=== PATIENT | male | born 1950 | race Caucasian/White ===

== ENCOUNTER → 2019-05-21 | Outpatient (CLI) | payer OTHER ==
--- NOTE | 2019-05-22 08:35 | REP ---
RENAL ULTRASOUND: CLINICAL: Chronic stage III medical renal disease. TECHNIQUE: Real-time grayscale ultrasound examination using curved array transducer. FINDINGS: The bilateral kidneys are normal in contour, size, echogenicity and reniform shape without hydronephrosis, nephrolithiasis, cystic or renal mass lesion. Increased central sinus fat noted and consistent with given history of chronic renal disease. Right kidney measures 10.9 x 4.9 x 4.9 cm. Left kidney measures 10.7 x 4.4 x 6.1 cm. Bladder is grossly normal in appearance. IMPRESSION: Evidence consistent with chronic medical renal disease.No hydronephrosis or further obvious abnormality. Electronically Signed by José Rodarte MD 05/25/2019 07:38 P
== END ==
LOC: M RAD 11:49
PROVIDERS: ATTEND Internal Medicine
DX: N18.3 Chronic kidney disease, stage 3 (moderate) (principal)

== ENCOUNTER → 2019-11-20 | Outpatient (REF) | payer OTHER ==
[~2019-11-20] MED LIST: ADV100INH INH; AMIL5TAB4 PO; ASPI81TA86 PO; CLOB0.0526 TOP; FERR32TA PO; FISH1000 PO; FLUT1BLS2 INH; GLIP2.5T6 PO; K-TA10TA PO; LISI-538 PO; LOPR1TAB7 PO; OMEGCAP4 PO; OMEP-221 PO; PRIL20TA2 PO; PROAAER10 INH; PROBCAP14 PO; ROSU40TA4 PO; SPIR1CAP INH
[2019-11-20 20:47] LABS: FERRITIN 643 NG/ML (26-388); IRON (FE) 51 UG/DL (65-175); PERCENT SATURATION 18.9 % (19.7-50.0); TOTAL IRON BINDING CAPACITY 270 UG/DL (250-450); TOTAL PROTEIN 6.9 GM/DL (6.4-8.2)
[2019-11-20 20:55] LABS: HEPATITIS B SURFACE ANTIBODY NEGATIVE (POSITIVE); VITAMIN B12 LEVEL 274 PG/ML
[2019-11-20 20:56] LABS: FOLATE 7.5 NG/ML
[2019-11-20 21:06] LABS: HEPATITIS B SURFACE ANTIGEN NEGATIVE (NEGATIVE)
[2019-11-20 21:34] LABS: HEPATITIS B CORE ANTIBODY IGM NEGATIVE (NEGATIVE); HEPATITIS C VIRUS ABY INDEX 0.2 INDEX (<0.8)
[2019-11-20 23:13] LABS: COMPLEMENT C3 134 MG/DL (90-180); COMPLEMENT C4 24 MG/DL (10-40)
[2019-11-24 13:10] LABS: ALBUMIN 3.55 GM/DL (3.29-5.55); ALBUMIN % 51.5 % (55.8-66.1); ALPHA-1-GLOBULIN % 5.2 % (2.9-4.9); ALPHA-1-GLOBULINS 0.36 GM/DL (0.17-0.41); ALPHA-2-GLOBULINS 0.75 GM/DL (0.42-0.99); ALPHA-2-GLOBULINS % 10.9 % (7.1-11.8); BETA-1-GLOBULINS 0.48 GM/DL (0.28-0.60); BETA-2-GLOBULINS 0.61 GM/DL (0.19-0.55); BETA-2-GLOBULINS % 8.8 % (3.2-6.5); GAMMA GLOBULIN % 16.6 % (11.1-18.8); GAMMA GLOBULINS 1.15 GM/DL (0.65-1.58)
[2019-11-24 18:10] LABS: ANCA-ATYPICAL <1:20 titer (Neg:<1:20); ANTI DS-DNA AB Negative (Negative); ANTI-GLOMERULAR BASEMENT MEMB 2 units (0-20); ANTINUCLEAR ANTIBODIES DIRECT Negative (Negative); CYTOPLASMIC NEUTROP AB ANCA-C <1:20 titer (Neg:<1:20); FREE KAPPA LIGHT CHAINS SERUM 85.7 mg/L (3.3-19.4); FREE LAMBDA LIGHT CHAINS SERUM 61.1 mg/L (5.7-26.3); PERINUCLEAR AB ANCA-P <1:20 titer (Neg:<1:20)
== END ==
LOC: M LAB REF 16:46
PROVIDERS: ATTEND Internal Medicine Nephrology
DX: D64.9 Anemia, unspecified (principal); R31.9 Hematuria, unspecified

== ENCOUNTER → 2019-11-28 | Outpatient (REF) | payer OTHER | LOC: M LAB REF 15:22 | PROVIDERS: ATTEND Internal Medicine Nephrology | DX: N18.3 Chronic kidney disease, stage 3 (moderate) (principal); D50.9 Iron deficiency anemia, unspecified; E11.22 Type 2 diabetes mellitus with diabetic chronic kidney disease ==

== ENCOUNTER 2019-12-09 13:09 | Outpatient (CLI) | payer OTHER ==
[2019-12-09] VITALS (8 sets, daily range): BP systolic 138–194; BP diastolic 60–77
[~2019-12-09] VITALS: Ht 170.2 cm; Wt 88.6 kg
[~2019-12-09 13:09] MED LIST changes: -ADV100INH INH; -AMIL5TAB4 PO; -FLUT1BLS2 INH; +FUROSEMIDE 40MG/4ML VIAL (J1940) IV ONE; -OMEGCAP4 PO; -OMEP-221 PO; -PROBCAP14 PO; +diphenhydrAMINE 25MG CAP PO ONE
[2019-12-09] MEDS ORDERED: PRIL20TA2 PO (15:34)
[2019-12-09] MEDS ORDERED: SPIR1CAP INH (15:34)
[2019-12-09] MEDS ORDERED: ADV100INH INH (15:37)
== END 2019-12-09 19:11 | disposition home or self-care (01) ==
LOC: M INFU 13:09
PROVIDERS: ATTEND Internal Medicine Nephrology
DX: D64.9 Anemia, unspecified (principal); N18.3 Chronic kidney disease, stage 3 (moderate); Z88.0 Allergy status to penicillin; Z88.6 Allergy status to analgesic agent; Z91.040 Latex allergy status
CPT/HCPCS: 36430; 36592; 86850; 86900; 86901; 86920; 96374; J1940; P9016

== ENCOUNTER → 2019-12-12 | Outpatient (CLI) | payer OTHER ==
[~2019-12-12] MED LIST changes: +ADV100INH INH; +AMIL5TAB4 PO; +FLUT1BLS2 INH; -FUROSEMIDE 40MG/4ML VIAL (J1940) IV ONE; +OMEGCAP4 PO; +OMEP-221 PO; +PROBCAP14 PO; -diphenhydrAMINE 25MG CAP PO ONE
== END ==
LOC: M LABSMTC 08:01
PROVIDERS: ATTEND Anesthesiology
DX: Z01.812 Encounter for preprocedural laboratory examination (principal); Z20.828 Contact with and (suspected) exposure to other viral communicable diseases
CPT/HCPCS: C9803; U0003

== ENCOUNTER 2019-12-17 10:06 | Day surgery (SDC) | payer OTHER ==
[~2019-12-17] VITALS: Ht 170.2 cm; Wt 88.0 kg
[~2019-12-17 10:06] MED LIST changes: -AMIL5TAB4 PO; -FLUT1BLS2 INH; +NS 1,000 ML IV ONE; -OMEGCAP4 PO; -OMEP-221 PO; -PROBCAP14 PO
--- NOTE | 2019-12-17 11:46 | ROOR ---
Patient Name: Marquise Reyes Procedure Date: 12/17/2019 11:26 AM Date of : 1950 Age: 69 Room: [facility] Gender: Male Note Status: Finalized Procedure: Upper GI endoscopy Indications: Iron deficiency anemia Providers: Yonny Mabry Jr, MD Referring MD: [facility], Admin. Requesting Provider: Medicines: Propofol per Anesthesia Complications: No immediate complications. Procedure: Pre-Anesthesia Assessment: - Prior to the procedure, a History and Physical was performed, and patient medications and allergies were reviewed. The patient is competent. The risks and benefits of the procedure and the sedation options and risks were discussed with the patient. All questions were answered and informed consent was obtained. Patient identification and proposed procedure were verified by the physician and the nurse in the pre-procedure area and in the procedure room. Mental Status Examination: alert and oriented. Airway Examination: normal oropharyngeal airway and neck mobility. Respiratory Examination: clear to auscultation. CV Examination: normal. ASA Grade Assessment: II - A patient with mild systemic disease. After reviewing the risks and benefits, the patient was deemed in satisfactory condition to undergo the procedure. The anesthesia plan was to use moderate sedation / analgesia (conscious sedation). Immediately prior to administration of medications, the patient was re-assessed for adequacy to receive sedatives. The heart rate, respiratory rate, oxygen saturations, blood pressure, adequacy of pulmonary ventilation, and response to care were monitored throughout the procedure. The physical status of the patient was re-assessed after the procedure. The Endoscope was introduced through the mouth, and advanced to the second part of duodenum. The upper GI endoscopy was accomplished without difficulty. The patient tolerated the procedure well. Findings: The upper third of the esophagus, middle third of the esophagus, lower third of the esophagus and gastroesophageal junction were normal. The prepyloric region of the stomach was normal. Multiple medium semi-sessile polyps with no bleeding and no stigmata of recent bleeding were found in the gastric fundus, in the gastric body and in the gastric antrum. Biopsies were taken with a cold forceps for histology. The duodenal bulb, first portion of the duodenum and second portion of the duodenum were normal. Impression: - Normal upper third of esophagus, middle third of esophagus, lower third of esophagus and gastroesophageal junction. - Normal prepyloric region of the stomach. - Multiple gastric polyps. Biopsied. - Normal duodenal bulb, first portion of the duodenum and second portion of the duodenum. Recommendation: - Discharge patient to home (ambulatory). - Return to my office in 2 weeks. Yonny Mabry MD Yonny Mabry Jr, MD 12/17/2019 11:45:55 AM Electronically signed by Yonny Mabry Jr, MD Number of Addenda: 0 Note Initiated On: 12/17/2019 11:26 AM Estimated Blood Loss: Estimated blood loss: none.
[2019-12-17] MEDS ORDERED: LIDOCAINE 2% MDV 20ML VIAL As Ordered ONE (11:52)
[2019-12-17] MEDS ORDERED: propofoL 500 MG/50 ML VIAL As Ordered ONE (11:52)
[2019-12-17] MEDS ORDERED: fentaNYL 100 MCG/2 ML INJECTION (J3010) As Ordered ONE (11:52)
--- NOTE | 2019-12-17 12:30 | ROOR ---
Patient Name: Marquise Reyes Procedure Date: 12/17/2019 11:27 AM Date of : 1950 Age: 69 Room: [facility] Gender: Male Note Status: Finalized Procedure: Colonoscopy Indications: Iron deficiency anemia Providers: Yonny Mabry Jr, MD Referring MD: [facility], Admin. Requesting Provider: Medicines: Propofol per Anesthesia Complications: No immediate complications. Procedure: Pre-Anesthesia Assessment: - Prior to the procedure, a History and Physical was performed, and patient medications and allergies were reviewed. The patient is competent. The risks and benefits of the procedure and the sedation options and risks were discussed with the patient. All questions were answered and informed consent was obtained. Patient identification and proposed procedure were verified by the physician and the nurse in the pre-procedure area and in the procedure room. Mental Status Examination: alert and oriented. Airway Examination: normal oropharyngeal airway and neck mobility. Respiratory Examination: clear to auscultation. CV Examination: normal. ASA Grade Assessment: III - A patient with severe systemic disease. After reviewing the risks and benefits, the patient was deemed in satisfactory condition to undergo the procedure. The anesthesia plan was to use moderate sedation / analgesia (conscious sedation). Immediately prior to administration of medications, the patient was re-assessed for adequacy to receive sedatives. The heart rate, respiratory rate, oxygen saturations, blood pressure, adequacy of pulmonary ventilation, and response to care were monitored throughout the procedure. The physical status of the patient was re-assessed after the procedure. The Colonoscope was introduced through the anus and advanced to the cecum, identified by appendiceal orifice and ileocecal valve. The colonoscopy was performed without difficulty. The patient tolerated the procedure well. The quality of the bowel preparation was adequate. Findings: A diffuse area of moderately friable mucosa with spontaneous bleeding was found in the cecum. This was biopsied with a cold jumbo forceps for histology. To prevent bleeding after the biopsy, one hemostatic clip was successfully placed. There was no bleeding at the end of the procedure. Multiple sessile polyps were found in the rectum, recto-sigmoid colon, descending colon, transverse colon and ascending colon. The polyps were 5 to 20 mm in size. These polyps were removed with a hot snare. Resection was complete, but the polyp tissue was only partially retrieved. A large polyp was found in the cecum. The polyp was semi-sessile. The polyp was removed with a hot snare. Polyp resection was incomplete, and the resected tissue was partially retrieved. Area was tattooed with an injection of 1 mL of Spot (carbon black). Impression: - Friability with spontaneous bleeding in the cecum. Biopsied. - Multiple 5 to 20 mm polyps in the rectum, at the recto-sigmoid colon, in the descending colon, in the transverse colon and in the ascending colon, removed with a hot snare. Complete resection. Partial retrieval. - One large polyp in the cecum, removed with a hot snare. Polyp resection was incomplete, and the resected tissue was partially retrieved. Tattooed. Recommendation: - Return to my office in 2 weeks. Yonny Mabry MD Yonny Mabry Jr, MD 12/17/2019 12:30:04 PM Electronically signed by Yonny Mabry Jr, MD Number of Addenda: 0 Note Initiated On: 12/17/2019 11:27 AM Estimated Blood Loss: Estimated blood loss: none.
[2019-12-17 12:51] VITALS: BP 124/83
== END 2019-12-17 12:53 | disposition home or self-care (01) ==
LOC: M OPP 10:06
PROVIDERS: ATTEND Surgery
DX: K92.2 Gastrointestinal hemorrhage, unspecified (principal); K62.1 Rectal polyp; D12.6 Benign neoplasm of colon, unspecified; K31.7 Polyp of stomach and duodenum; D50.9 Iron deficiency anemia, unspecified; J44.9 Chronic obstructive pulmonary disease, unspecified; R12 Heartburn; E11.9 Type 2 diabetes mellitus without complications; F17.210 Nicotine dependence, cigarettes, uncomplicated; Z79.82 Long term (current) use of aspirin; Z79.84 Long term (current) use of oral hypoglycemic drugs; Z79.899 Other long term (current) drug therapy; Z88.0 Allergy status to penicillin; Z88.5 Allergy status to narcotic agent; Z88.8 Allergy status to other drugs, medicaments and biological substances; Z91.040 Latex allergy status; Z86.73 Personal history of transient ischemic attack (TIA), and cerebral infarction without residual deficits
CPT/HCPCS: 43239; 45380; 45381; 45385; 88305; J3010

== ENCOUNTER → 2020-01-04 | Outpatient (REF) | payer OTHER ==
[~2020-01-04] MED LIST changes: +AMIL5TAB4 PO; -NS 1,000 ML IV ONE
== END ==
LOC: M LAB REF 16:59
PROVIDERS: ATTEND Internal Medicine Nephrology
DX: D64.9 Anemia, unspecified (principal)

== ENCOUNTER 2020-01-05 11:10 | Outpatient (CLI) | payer OTHER ==
[~2020-01-05] VITALS: Ht 170.2 cm; Wt 88.6 kg
[2020-01-05] VITALS (8 sets, daily range): BP systolic 115–134; BP diastolic 54–72
[~2020-01-05 11:10] MED LIST changes: -AMIL5TAB4 PO; +diphenhydrAMINE 25MG CAP PO SCH
[2020-01-05] MEDS ORDERED: AMIL5TAB4 PO (11:34)
== END 2020-01-05 15:40 | disposition home or self-care (01) ==
LOC: M INFU 11:10
PROVIDERS: ATTEND Internal Medicine Nephrology
DX: D64.9 Anemia, unspecified (principal); N18.30 Chronic kidney disease, stage 3 unspecified; Z88.0 Allergy status to penicillin; Z88.6 Allergy status to analgesic agent; Z91.040 Latex allergy status
CPT/HCPCS: 36430; P9016

== ENCOUNTER → 2020-01-15 | Outpatient (REF) | payer OTHER ==
[~2020-01-15] MED LIST changes: +AMIL5TAB4 PO; +FLUT1BLS2 INH; +OMEGCAP4 PO; +OMEP-221 PO; +PROBCAP14 PO; -diphenhydrAMINE 25MG CAP PO SCH
== END ==
LOC: M LAB REF 17:02
PROVIDERS: ATTEND Internal Medicine Nephrology
DX: D50.0 Iron deficiency anemia secondary to blood loss (chronic) (principal)

== ENCOUNTER 2020-01-16 09:42 | Observation (INO) | payer OTHER ==
[~2020-01-16] VITALS: Ht 170.2 cm; Wt 86.4 kg
[2020-01-16] VITALS (8 sets, daily range): BP systolic 124–153; BP diastolic 64–98
[~2020-01-16 09:42] MED LIST changes: -FLUT1BLS2 INH; -OMEGCAP4 PO; -OMEP-221 PO; -PROBCAP14 PO
[2020-01-16 10:33] LABS: HEMATOCRIT 25.7 % (42.0-52.0); HEMOGLOBIN 8.2 g/dl (13.5-17.5); MEAN CORPUSCULAR HEMOGLOBIN 29.8 pg (27.0-33.0); MEAN CORPUSCULAR HGB CONC 31.9 g/dl (32.0-36.5); MEAN CORPUSCULAR VOLUME 93.5 fl (80.0-96.0); RED BLOOD COUNT 2.75 10^6/uL (4.30-6.10); WHITE BLOOD COUNT 1.8 10^3/uL (4.0-10.0)
[2020-01-16 10:53] LABS: CALCIUM LEVEL 8.6 MG/DL (8.8-10.2); CREATININE FOR GFR 3.53 MG/DL (0.70-1.30); GLOMERULAR FILTRATION RATE 18.5 (>49); POTASSIUM SERUM 3.9 MEQ/L (3.5-5.1)
[2020-01-16 11:24] LABS: PLATELET COUNT, AUTOMATED 73 10^3/uL (150-450)
[2020-01-16] MEDS ORDERED: FLUT1BLS2 INH (13:27)
[2020-01-16] MEDS ORDERED: OMEGCAP4 PO (13:27)
[2020-01-16] MEDS ORDERED: OMEP-221 PO (13:27)
[2020-01-16] MEDS ORDERED: PROBCAP14 PO (13:28)
--- NOTE | 2020-01-16 17:32 | HPEPDOC ---
General Date of Admission Jan 16, 2020 at 09:43 Chief Complaint The patient is a 69-year-old male admitted with a reason for visit of Pancytopen ia. Source: Patient, RN/MD History of Present Illness 69-year-old male with past medical history of CKD stage4 , chronic anemia getting blood transfusions 4 last 2 months, from ongoing GI bleed, underwent colonoscopy and EGD on December 16. EGD showed semi-sessile polyps with no stigmata of recent bleeding at the gastric fundus, in the gastric body and in the gastric antrum. Colonoscopy showed diffuse friable mucosa with spontaneous bleeding in the cecum, a hemostatic clip was placed multiple sessile polyps were found in the rectum and rectosigmoid colon and descending colon, transverse colon and ascending colon there was a large polyp in cecum, which was removed only partially. Biopsy of the gastric polyps some showed hyperplastic polyps. Biopsy of the colonic polyps showed tubular adenomas. Cecal mucosa showed some mild nonspecific inflammation. He comes in today at the instruction of his bsw as his repeat blood work from yesterday again showed low hemoglobin and he needed blood transfusion. Patient complained of some dark-colored stools semisolid soft in nature. He also complained of feeling dizzy and lightheaded and fatigued, more in the last week. He denied any chest pain or shortness of breath. He was scheduled to get 2 units of blood transfusion 2 days later on Saturday. However, his bsw wanted him to get the transfusions are early and get him fully worked up for this persistent anemia in spite of blood transf usions. In the ED he was found to be pancytopenic. His hemoglobin level was 8.1, 2 weeks ago was 8.6 today. However, his WBC and platelet count was much lower than before. Patient was admitted for symptomatic anemia and pancytopenia Home Medications Scheduled Amiloride HCl (Amiloride HCl) 5 Mg Tablet, 5 MG PO DAILY, (Reported) Ferrous Gluconate (Ferrous Gluconate) 324 Mg Tablet, 324 MG PO DAILY, (Reported) Fluticasone Propion/Salmeterol (Wixela 250-50 Inhub) 1 Each Blst.w.dev, 1 EACH INH BID, (Reported) Glipizide (Glipizide ER) 2.5 Mg Tab.er.24, 2.5 MG PO DAILY, (Reported) Lactobacillus Acidophilus (Probiotic) 1 Each Capsule, 1 CAP PO TID, (Reported) Metoprolol Tartrate (Lopressor) 100 Mg Tablet, 100 MG PO BID, (Reported) [place]-3/Dha/Epa/Fish Oil ([place]-3 Fish Oil 1,000 mg Sfgl) 1,000 Mg Capsule, 1 CAP PO BID, (Reported) Omeprazole (Omeprazole) 40 Mg Capsule.dr, 40 MG PO DAILY, (Reported) Rosuvastatin Calcium (Rosuvastatin Calcium) 40 Mg Tablet, 40 MG PO QHS, (Reported) Tiotropium [place] (Spiriva) 18 Mcg Cap.w.dev, 1 INHALATION INH DAILY, ( Reported) Scheduled PRN Albuterol Sulfate (Proair Hfa) 8.5 Gm Hfa.aer.ad, 2 PUFF INH for SHORTNESS OF BREATH, (Reported) Allergies Coded Allergies: Latex, Natural Rubber (Verified Allergy, Intermediate, BREAKS OUT, 12/07/19) adalimumab (Verified Allergy, Intermediate, VIVID DREAMS, 12/07/19) codeine (Verified Allergy, Intermediate, PSYCHOSIS, 12/07/19) Penicillins (Verified Allergy, Unknown, 12/07/19) Past Medical History Medical History GIB, CKD stage 4 Chronic anemia requiring blood transfusions 4 units in the last 2 months COPD Diabetes Hypertension, hypercholesterolemia, GERD wisdom tooth removal, 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 Dyspnea Gastrointestinal: Reports: Melena; Denies: Nausea, Vomiting, Abdominal Pain, Diarrhea Genitourinary: Denies: Dysuria, Frequency, Incontinence, Retention Hematologic: Denies: Bruising, Bleeding Excessively Musculoskeletal: Denies: Neck Pain, Back Pain, Joint Pain, Muscle Pain, Spasms Neurological: Reports: Weakness (left hand) Physical Examination General Exam: Positive: Alert, Cooperative, No Acute Distress Eye Exam: Positive: PERRLA, Conjunctiva & lids normal, EOMI; Negative: Sclera icteric ENT Exam: Positive: Atraumatic, Mucous membr. moist/pink, Pharynx Normal Neck Exam: Positive: Supple; Negative: JVD, thyromegaly Chest Exam: Positive: Clear to auscultation, Normal air movement Heart Exam: Positive: Rate Normal, Regular Rhythm, Normal S1, Normal S2; Negative: Murmurs, Rubs Telemetry: Positive: No significant arrhythmia Abdomen Exam: Positive: Normal bowel sounds, Soft; Negative: Tenderness, Hepatospenomegaly Extremity Exam: Positive: Edema (1+ bilateral edema); Negative: Clubbing, Cyanosis Skin Exam: Positive: Nl turgor and temperature; Negative: Breakdown, Lesion Vital Signs Vital Signs Date Time Temp Pulse Resp B/P (MAP) Pulse Ox O2 Delivery O2 Flow Rate FiO2 01/16/20 15:45 78 123/60 (81) 100 Room Air 01/16/20 09:43 98.1 18 Laboratory Data Labs 24H Laboratory Tests 2 01/16/20 10:17: Nucleated Red Blood Cells % (auto) 0.0, Differential Slide Review Report, Immature Platelet Fraction 3.6, Peripheral Blood Smear Path Consult PERIPHERAL SMEAR, Anion Gap 10, Glomerular Filtration Rate 18.5L, Calcium Level 8.6L 01/16/20 15:43: CBC/BMP Laboratory Tests 01/16/20 10:17 Assessment/Plan 69-year-old male with past medical history of CKD stage4 , chronic anemia getting blood transfusions 4 last 2 months, from ongoing GI bleed, underwent colonoscopy and EGD on December 16. EGD showed semi-sessile polyps with no stigmata of recent bleeding at the gastric fundus, in the gastric body and in the gastric antrum. Colonoscopy showed diffuse friable mucosa with spontaneous bleeding in the cecum, a hemostatic clip was placed multiple sessile polyps were found in the rectum and rectosigmoid colon and descending colon, transverse colon and ascending colon there was a large polyp in cecum, which was removed only partially. Biopsy of the gastric polyps some showed hyperplastic polyps. Biopsy of the colonic polyps showed tubular adenomas. Cecal mucosa showed some mild nonspecific inflammation. He comes in today at the instruction of his bsw as his repeat blood work from yesterday again showed low hemoglobin and he needed blood transfusion. Patient complained of some dark-colored stools semisolid soft in nature. He also complained of feeling dizzy and lightheaded and fatigued, more in the last week. He denied any chest pain or shortness of breath. He was scheduled to get 2 units of blood transfusion 2 days later on Saturday. However, his bsw wanted him to get the transfusions are early and get him fully worked up for this persistent anemia in spite of blood trans fusions. In the ED he was found to be pancytopenic. His hemoglobin level was 8.1, 2 weeks ago was 8.6 today. However, his WBC and platelet count was much lower than before. Patient was admitted for symptomatic anemia and pancytopenia Symptomatic Anemia will transfuse 2 units of PRBC Pancytopenia peripheral smear did not show any blasts Discussed with DR Borrego he will see the patient on 01/18/20 at the office and set him up for a bone marrow biopsy on 01/19/20 The oncology clinic will call him early in the morning on Saturday and set up the appointment GIB Discussed with Dr Mabry As his vitals are stable plan is to give him 2 units and discharge him He has been referred to GI at [place] for further work up of his GIB. He also thinks due to his low platelets he could have been oozing from his polypectomy scars. He will need a push enteroscopy will get stool for occult blood. CKD stage 4 creatine slightly elevated from baseline of 2.9 2 weeks ago Today its up to 3.5 will monitor. will continue with amiloride consult dr Noe tomorrow COPD will continue home inhalors Diabetes continue Glipizide Hypertension on amiloride hypercholesterolemia statin GERD PPI Plan / VTE VTE Prophylaxis Ordered?: Yes SVETLANA SHEETS MD Jan 16, 2020 17:32
[2020-01-16] MEDS: SYMBICORT 160/4.5MCG INHALER 6GM INH SCH (20:00)
[2020-01-16] MEDS ORDERED: GLUCOSE 4GM CHEW TABLET PO PRN (20:30)
[2020-01-16] MEDS ORDERED: DEXTROSE 50% 50 ML SYRINGE IV PRN (20:30)
[2020-01-16] MEDS ORDERED: GLUCAGON INJ 1MG VIAL SC PRN (20:30)
[2020-01-16] MEDS: METOPROLOL TARTRATE 100 MG TAB PO SCH (20:39)
[2020-01-16] MEDS ORDERED: ROSUVASTATIN 10 MG TAB (CRESTOR) PO SCH (21:00)
[2020-01-17 00:15] VITALS: BP 131/63
[2020-01-17 01:15] VITALS: BP 132/80
[2020-01-17 02:05] VITALS: BP 125/63
[2020-01-17 03:05] VITALS: BP 127/68
[2020-01-17 06:00] VITALS: BP 124/60
[2020-01-17 06:57] LABS: BASO % 1.8 % (0.0-1.0); EOS # 0.2 10^3/uL (0.0-0.5); EOS % 9.1 % (0.0-3.0); HEMATOCRIT 26.6 % (42.0-52.0); HEMOGLOBIN 8.9 g/dl (13.5-17.5); LYMPH # 0.8 10^3/uL (1.5-5.0); LYMPH % 45.5 % (24.0-44.0); MEAN CORPUSCULAR HEMOGLOBIN 30.5 pg (27.0-33.0); MEAN CORPUSCULAR HGB CONC 33.5 g/dl (32.0-36.5); MEAN CORPUSCULAR VOLUME 91.1 fl (80.0-96.0); MONO # 0.3 10^3/uL (0.0-0.8); MONO % 20.6 % (0.0-5.0); RED BLOOD COUNT 2.92 10^6/uL (4.30-6.10); WHITE BLOOD COUNT 1.7 10^3/uL (4.0-10.0)
[2020-01-17 07:12] LABS: CALCIUM LEVEL 8.5 MG/DL (8.8-10.2); CREATININE FOR GFR 3.07 MG/DL (0.70-1.30); GLOMERULAR FILTRATION RATE 21.7 (>49); POTASSIUM SERUM 3.5 MEQ/L (3.5-5.1)
[2020-01-17 07:31] LABS: NEUTROPHILS # 0.4 10^3/uL (1.5-8.5); PLATELET COUNT, AUTOMATED 57 10^3/uL (150-450)
[2020-01-17] MEDS ORDERED: glipiZIDE *2.5MG* 1/2 TABLET PO SCH (08:00)
[2020-01-17] MEDS: SYMBICORT 160/4.5MCG INHALER 6GM INH SCH (08:05)
--- NOTE | 2020-01-17 08:28 | DS.PDOC ---
Discharge Summary General Date of Admission Jan 16, 2020 at 09:43 Date of Discharge 01/17/20 Discharge Summary PROCEDURES PERFORMED DURING STAY: [None]. DISCHARGE DIAGNOSES: Pancytopenia Symptomatic anemia SECONDARY DIAGNOSIS: GIB in December 2019 felt to be from friable mucosa. Villous adenoma of the caecum. 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 HOSPITAL COURSE: 69-year-old male with past medical history of CKD stage4 , chronic anemia getting blood transfusions 4 last 2 months, from ongoing GI bleed, underwent colonoscopy and EGD on December 16. EGD showed semi-sessile polyps with no stigmata of recent bleeding at the gastric fundus, in the gastric body and in the gastric antrum. Colonoscopy showed diffuse friable mucosa with spontaneous bleeding in the cecum, a hemostatic clip was placed multiple sessile polyps were found in the rectum and rectosigmoid colon and descending colon, transverse colon and ascending colon there was a large polyp in cecum, which was removed only partially. Biopsy of the gastric polyps some showed hyperplastic polyps. Biopsy of the colonic polyps showed tubular adenomas. Cecal mucosa showed some mild nonspecific inflammation. He comes in today at the instruction of his sports management internship as his repeat blood work from yesterday again showed low hemoglobin and he needed blood transfusion. Patient complained of some dark- colored stools semisolid soft in nature. He also complained of feeling dizzy and lightheaded and fatigued, more in the last week. He denied any chest pain or shortness of breath. He was scheduled to get 2 units of blood transfusion 2 days later on Saturday. However, his sports management internship wanted him to get the transfusions are early and get him fully worked up for this persistent anemia in spite of blood transfusions. In the ED he was found to be pancytopenic. His hemoglobin level was 8.1, 2 weeks ago was 8.6 today. However, his WBC and platelet count was much lower than before. Patient was admitted for symptomatic anemia and pancytopenia Symptomatic Anemia transfused 2 units of PRBC Pancytopenia peripheral smear did not show any blasts Discussed with DR Yuan he will see the patient on 01/18/20 at the office and set him up for a bone marrow biopsy on 01/19/20 The oncology clinic will call him early in the morning on Saturday and set up the appointment h/o GIB from caecal mucosa in Dec 2019. No Active GIB at present . Stool occult x 3 negative. Colonoscopy and EGD in dec 2019 showed multiple poplyp in stomach and colon and 1 large sessile poplyp in the caecum. Colonic polyps removed but the caecal polyp could only be removed piece. Diffuse friable mucosa with spontaneous bleeding in the cecum, a hemostatic clip was placed. He has been referred to GI at [place] for further work up of his GIB. He will need a push enteroscopy CKD stage 4 creatinine back to baseline. will continue with amiloride follow up with [place] COPD continue home inhalors Diabetes continue Glipizide Hypertension on amiloride hypercholesterolemia statin GERD PPI DISCHARGE MEDICATIONS: Please see below. ALLERGIES: Please see below. PHYSICAL EXAMINATION ON DISCHARGE: VITAL SIGNS: Please see below. General Exam: Positive: Alert, Cooperative, No Acute Distress Eye Exam: Positive: PERRLA, Conjunctiva & lids normal, EOMI; Negative: Sclera icteric ENT Exam: Positive: Atraumatic, Mucous membr. moist/pink, Pharynx Normal Neck Exam: Positive: Supple; Negative: JVD, thyromegaly Chest Exam: Positive: Clear to auscultation, Normal air movement Heart Exam: Positive: Rate Normal, Regular Rhythm, Normal S1, Normal S2; Negative: Murmurs, Rubs Telemetry: Positive: No significant arrhythmia Abdomen Exam: Positive: Normal bowel sounds, Soft; Negative: Tenderness, Hepatospenomegaly Extremity Exam: Positive: Edema (1+ bilateral edema); Negative: Clubbing, Cyanosis Skin Exam: Positive: Nl turgor and temperature; Negative: Breakdown, Lesion LABORATORY DATA: Please see below. ACTIVITY: [As tolerated]. DIET: As tolerated DISPOSITION: home DISCHARGE INSTRUCTIONS: Dr Yuan on 01/18/20 Dr Noe in 2 weeks PMD in 1 week DISCHARGE CONDITION: [Stable]. TIME SPENT ON DISCHARGE: 35 minutes. Vital Signs/I&Os Vital Signs Date Time Temp Pulse Resp B/P (MAP) Pulse Ox O2 Delivery O2 Flow Rate FiO2 01/17/20 06:00 98.6 77 18 124/60 (81) 96 Room Air I&O- Last 24 Hours up to 6 AM 01/17/20 06:00 Intake Total 880 ml Output Total 850 ml Balance 30 ml Laboratory Data Labs 24H Laboratory Tests 2 01/16/20 10:17: Nucleated Red Blood Cells % (auto) 0.0, Differential Slide Review Report, Immat ure Platelet Fraction 3.6, Peripheral Blood Smear Path Consult PERIPHERAL SMEAR, Anion Gap 10, Glomerular Filtration Rate 18.5L, Calcium Level 8.6L 01/16/20 15:43: Coronavirus (COVID-19)(PCR) NEGATIVE 01/16/20 20:16: Bedside Glucose (Misc Panel) 118H 01/17/20 05:23: Nucleated Red Blood Cells % (auto) 0.0, Anion Gap 8, Glomerular Filtration Rate 21.7L, Calcium Level 8.5L, Immature Granulocyte % (Auto) 0.0, Neutrophils (%) (Auto) 23.0L, Lymphocytes (%) (Auto) 45.5H, Monocytes (%) (Auto) 20.6H, Eosinophils (%) (Auto) 9.1H, Basophils (%) (Auto) 1.8H, Neutrophils # (Auto) 0.4L, Lymphocytes # (Auto) 0.8L, Monocytes # (Auto) 0.3, Eosinophils # (Auto) 0.2, Basophils # (Auto) 0.0 CBC/BMP Laboratory Tests 01/16/20 10:17 01/17/20 05:23 FSBS Laboratory Tests Test 01/16/20 20:16 Range/Units Bedside Glucose (Misc Panel) 118 80-115 MG/DL Microbiology Microbiology 01/17/20 Stool Occult Blood (JULIEN) - Final, Complete 01/16/20 Stool Occult Blood (JULIEN) - Final, Complete 01/16/20 Stool Occult Blood (JULIEN) - Final, Complete Discharge Medications Scheduled Amiloride HCl (Amiloride HCl) 5 Mg Tablet, 5 MG PO DAILY, (Reported) Fluticasone Propion/Salmeterol ([place] 250-50 Inhub) 1 Each Blst.w.dev, 1 EACH INH BID, (Reported) Glipizide (Glipizide ER) 2.5 Mg Tab.er.24, 2.5 MG PO DAILY, (Reported) Lactobacillus Acidophilus (Probiotic) 1 Each Capsule, 1 CAP PO TID, (Reported) Metoprolol Tartrate (Lopressor) 100 Mg Tablet, 100 MG PO BID, (Reported) [place]-3/Dha/Epa/Fish Oil ([place]-3 Fish Oil 1,000 mg Sfgl) 1,000 Mg Capsule, 1 CAP PO BID, (Reported) Omeprazole (Omeprazole) 40 Mg Capsule.dr, 40 MG PO DAILY, (Reported) Rosuvastatin Calcium (Rosuvastatin Calcium) 40 Mg Tablet, 40 MG PO QHS, (Reported) Tiotropium [place] (Spiriva) 18 Mcg Cap.w.dev, 1 INHALATION INH DAILY, (Reported) Scheduled PRN Albuterol Sulfate (Proair Hfa) 8.5 Gm Hfa.aer.ad, 2 PUFF INH for SHORTNESS OF BREATH, (Reported) Allergies Coded Allergies: Latex, Natural Rubber (Verified Allergy, Intermediate, BREAKS OUT, 12/07/19) Penicillins (Verified Allergy, Unknown, 12/07/19) adalimumab (Verified Adverse Reaction, Intermediate, VIVID DREAMS, 01/16/20) codeine (Verified Adverse Reaction, Intermediate, PSYCHOSIS, 01/16/20) SVETLANA SHEETS MD Jan 17, 2020 08:28
[2020-01-17 08:38] VITALS: BP 127/63
[2020-01-17] MEDS: METOPROLOL TARTRATE 100 MG TAB PO SCH (08:38)
[2020-01-17] MEDS ORDERED: TIOTROPIUM INHALER/CAPSULE (SPIRIVA) INH SCH (09:00)
[2020-01-17] MEDS ORDERED: aMILoride 5 MG TAB PO SCH (09:00)
[2020-01-17] MEDS ORDERED: OMEPRAZOLE 20 MG CAP PO SCH (09:00)
== END 2020-01-17 09:42 | disposition home or self-care (01) ==
LOC: M ED 09:42 → M ED INP 09:43 → M MSPAV 18:51
PROVIDERS: ADMIT Internal Medicine Nephrology; ATTEND Internal Medicine Nephrology
DX: D61.818 Other pancytopenia (principal); N18.4 Chronic kidney disease, stage 4 (severe); K92.2 Gastrointestinal hemorrhage, unspecified; D12.0 Benign neoplasm of cecum; J44.9 Chronic obstructive pulmonary disease, unspecified; E11.9 Type 2 diabetes mellitus without complications; E78.00 Pure hypercholesterolemia, unspecified; I12.9 Hypertensive chronic kidney disease with stage 1 through stage 4 chronic kidney disease, or unspecified chronic kidney disease; K21.9 Gastro-esophageal reflux disease without esophagitis; Z86.73 Personal history of transient ischemic attack (TIA), and cerebral infarction without residual deficits; L40.52 Psoriatic arthritis mutilans; Z79.899 Other long term (current) drug therapy; Z91.040 Latex allergy status; Z88.0 Allergy status to penicillin; Z88.5 Allergy status to narcotic agent; Z87.891 Personal history of nicotine dependence
CPT/HCPCS: 36415; 36430; 80048; 82270; 85025; 85027; 85049; 85055; 86850; 86900; 86901; 86920; 94640; 99285; G0378; P9016; U0002

== ENCOUNTER → 2020-01-28 | Outpatient (REF) | payer OTHER ==
[~2020-01-28] MED LIST changes: +FLUT1BLS2 INH; +OMEGCAP4 PO; +OMEP-221 PO; +PROBCAP14 PO
== END ==
LOC: M LAB REF 16:58
PROVIDERS: ATTEND Internal Medicine Nephrology
DX: D64.9 Anemia, unspecified (principal); N18.30 Chronic kidney disease, stage 3 unspecified

== ENCOUNTER 2020-01-29 16:39 | Outpatient (CLI) | payer OTHER ==
[2020-01-29] VITALS (8 sets, daily range): BP systolic 110–125; BP diastolic 49–76
[~2020-01-29] VITALS: Ht 170.2 cm; Wt 83.0 kg
[2020-01-29] MEDS ORDERED: diphenhydrAMINE 25MG CAP PO ONE (18:00)
== END 2020-01-29 21:50 | disposition home or self-care (01) ==
LOC: M OPCLI5PR 16:39 → M MS5PR 16:46 → M OPCLI5PR 21:50
PROVIDERS: ATTEND Internal Medicine Nephrology
DX: D64.9 Anemia, unspecified (principal); N18.30 Chronic kidney disease, stage 3 unspecified; Z88.0 Allergy status to penicillin; Z88.6 Allergy status to analgesic agent; Z91.040 Latex allergy status
CPT/HCPCS: P9016 ×2

== ENCOUNTER → 2020-02-18 | Outpatient (REF) | payer OTHER ==
[~2020-02-18] MED LIST changes: +ATIV1TAB10 PO; +POTA10808 PO
== END ==
LOC: M LAB REF 17:00
PROVIDERS: ATTEND Internal Medicine Nephrology
DX: D61.818 Other pancytopenia (principal); Z88.1 Allergy status to other antibiotic agents

== ENCOUNTER 2020-02-19 08:20 | Outpatient (CLI) | payer OTHER ==
[~2020-02-19] VITALS: Ht 170.2 cm; Wt 86.8 kg
[2020-02-19] VITALS (10 sets, daily range): BP systolic 116–143; BP diastolic 58–66
[~2020-02-19 08:20] MED LIST changes: +diphenhydrAMINE 25MG CAP PO SCH
[2020-02-19] MEDS ORDERED: ACETAMINOPHEN 325 MG TAB PO ONE (08:30)
[2020-02-19] MEDS ORDERED: FUROSEMIDE 40MG/4ML VIAL (J1940) IV ONE (08:30)
== END 2020-02-19 16:15 | disposition home or self-care (01) ==
LOC: M INFU 08:20
PROVIDERS: ATTEND Internal Medicine Nephrology
DX: D61.818 Other pancytopenia (principal); Z88.1 Allergy status to other antibiotic agents; Z88.6 Allergy status to analgesic agent; Z91.040 Latex allergy status
CPT/HCPCS: 36430; 96374; J1940; P9016; P9040

== ENCOUNTER 2020-03-01 12:25 | Outpatient (CLI) | payer OTHER ==
[~2020-03-01] VITALS: Ht 170.2 cm; Wt 86.8 kg
[~2020-03-01 12:25] MED LIST changes: +ACETAMINOPHEN TAB 650MG DOSE (2X325MG) PO SCH
[2020-03-01 12:51] VITALS: BP 135/63
[2020-03-01 13:09] VITALS: BP 135/63
[2020-03-01 13:25] VITALS: BP 141/71
[2020-03-01 14:35] VITALS: BP 128/63
== END 2020-03-01 14:45 | disposition home or self-care (01) ==
LOC: M INFU 12:25
PROVIDERS: ATTEND Specialist
DX: D61.818 Other pancytopenia (principal); Z88.0 Allergy status to penicillin; Z88.6 Allergy status to analgesic agent; Z91.040 Latex allergy status
CPT/HCPCS: 36415; 36430; 85025; 85049; 85055; 86850; 86900; 86901; 86920; 88300; 88305; 88311; 88313; P9016

== ENCOUNTER → 2020-03-02 | Outpatient (REF) | payer OTHER ==
[~2020-03-02] MED LIST changes: -ACETAMINOPHEN TAB 650MG DOSE (2X325MG) PO SCH; -diphenhydrAMINE 25MG CAP PO SCH
== END ==
LOC: M LAB REF 16:58
PROVIDERS: ATTEND Internal Medicine Nephrology
DX: D61.818 Other pancytopenia (principal)

== ENCOUNTER → 2020-03-07 | Outpatient (CLI) | payer OTHER | LOC: M LAB 11:50 | PROVIDERS: ATTEND Internal Medicine Nephrology | DX: D61.818 Other pancytopenia (principal) ==

== ENCOUNTER 2020-03-08 09:47 | Outpatient (CLI) | payer OTHER ==
[~2020-03-08] VITALS: Ht 170.2 cm; Wt 86.9 kg
[2020-03-08] VITALS (9 sets, daily range): BP systolic 125–158; BP diastolic 58–88
[2020-03-08] MEDS ORDERED: diphenhydrAMINE 25MG CAP PO ONE (10:00)
[2020-03-08] MEDS ORDERED: ACETAMINOPHEN 325 MG TAB PO ONE (10:00)
[2020-03-08] MEDS ORDERED: FUROSEMIDE 40MG/4ML VIAL (J1940) IV ONE (10:00)
== END 2020-03-08 15:10 | disposition home or self-care (01) ==
LOC: M INFU 09:47
PROVIDERS: ATTEND Internal Medicine Nephrology
DX: N18.9 Chronic kidney disease, unspecified (principal); D63.1 Anemia in chronic kidney disease
CPT/HCPCS: 36430; 96374; J1940; P9016

== ENCOUNTER → 2020-04-06 | Outpatient (CLI) | payer OTHER ==
[~2020-04-06] MED LIST changes: -LISI-538 PO; +LISI20TA33 PO
--- NOTE | 2020-04-06 10:23 | REP ---
INDICATION: PANCYTOPENIA COMPARISON: None TECHNIQUE: Axial noncontrast images from the lung bases to the pubic symphysis with coronal and sagittal reformations. This CT examination was performed using the following dose reduction techniques: Automated exposure control, adjustment of mA and/or kv according to the patient's size, and use of iterative reconstruction technique. FINDINGS: Lung bases demonstrate mild right basilar atelectasis/dependent changes. Liver appears mildly enlarged and demonstrates a micronodular contour suggesting cirrhosis. Mild splenomegaly suggested. Pancreas, gallbladder, bilateral adrenal glands and kidneys are essentially normal. The enteric system is without obstruction or acute inflammatory process. Scattered diverticula noted without acute diverticulitis. Pelvis demonstrates mildly enlarged prostate gland and normal appearance of the bladder. Atherosclerotic changes to the aorta and vasculature noted without aneurysm. No ascites. No free air. No significant adenopathy identified. IMPRESSION: Findings suggesting cirrhosis with hepatosplenomegaly. Scattered diverticula without acute diverticulitis. Mildly enlarged prostate gland. No further acute abdominopelvic pathology appreciated. Minimal right basilar atelectasis/dependent changes. <Electronically signed by José Rodarte > 04/06/20 [id number]
== END ==
LOC: M RAD 09:31
PROVIDERS: ATTEND Specialist
DX: D61.818 Other pancytopenia (principal); J98.11 Atelectasis; N40.0 Benign prostatic hyperplasia without lower urinary tract symptoms; F10.10 Alcohol abuse, uncomplicated; Z20.822 Contact with and (suspected) exposure to COVID-19
CPT/HCPCS: 74176; 80053; 82105; 82172; 83010; 83883; 85610; 85652; 85730; 86140; 86480; 87389; U0003

== ENCOUNTER → 2020-04-06 | Outpatient (REF) | payer OTHER ==
[2020-04-06 15:06] LABS: INR 1.15
[2020-04-06 15:07] LABS: PARTIAL THROMBOPLASTIN TIME 49.8 SECONDS (24.2-38.5)
[2020-04-06 15:28] LABS: ALT/SGPT 25 U/L (12-78); BLOOD UREA NITROGEN 22 MG/DL (7-18); C REACTIVE PROTEIN QUANTITATIV 0.77 MG/DL (0.00-0.30); CALCIUM LEVEL 8.6 MG/DL (8.8-10.2); CARBON DIOXIDE LEVEL 26 MEQ/L (21-32); CHLORIDE LEVEL 105 MEQ/L (98-107); CREATININE FOR GFR 1.64 MG/DL (0.70-1.30); GLOMERULAR FILTRATION RATE 44.7 (>49); GLUCOSE, FASTING 141 MG/DL (70-100); POTASSIUM SERUM 3.2 MEQ/L (3.5-5.1); SODIUM LEVEL 139 MEQ/L (136-145); TOTAL PROTEIN 6.6 GM/DL (6.4-8.2)
[2020-04-06 16:16] LABS: HIV 1&2 SCREEN CENTAUR NEGATIVE (NEGATIVE)
== END ==
LOC: M SFHCPLAZ 11:30
PROVIDERS: ATTEND Internal Medicine Infectious Disease
DX: F10.10 Alcohol abuse, uncomplicated (principal)

== ENCOUNTER → 2020-04-06 | Outpatient (CLI) | payer OTHER | LOC: M LABSMTC 11:27 | PROVIDERS: ATTEND Anesthesiology | DX: Z01.812 Encounter for preprocedural laboratory examination (principal); Z20.822 Contact with and (suspected) exposure to COVID-19 ==

== ENCOUNTER 2020-04-11 09:54 | Day surgery (SDC) | payer OTHER ==
[~2020-04-11] VITALS: Ht 170.2 cm; Wt 88.4 kg
[~2020-04-11 09:54] MED LIST changes: +LISI-538 PO; -LISI20TA33 PO; +NS 1,000 ML IV ONE
--- OUTSIDE RECORDS SUMMARY | 2020-04-11 10:32 | CCD | Summary of Care ---
Author Author [facility] Address Unknown Phone Unavailable Care Team Providers Care Area Representative Name Role Phone PCP Unavailable Encounter Details Care Team Description Date Type Department 03/01/2020 [facility] Clinical Encounter Pathology at [address] [address] Allergies Not on Filedocumented as of this encounter (statuses as of 03/02/2020) Medications Not on filedocumented as of this encounter (statuses as of 03/02/2020) Active Problems Not on filedocumented as of this encounter (statuses as of 03/02/2020) Social History Date Tobacco Use Types Packs/Day Years Used Never Assessed Sex Assigned at Date Recorded Not on file documented as of this encounter Last Filed Vital Signs Not on filedocumented in this encounter Plan of Treatment Date/Time Name Type Priority Associated Diag noses 03/01/2020 2:04 PM EST Cytogenetics Oncology, Pathology and Routine Blood and Bone Marrow Cytology 03/01/2020 2:11 PM EST Hematopathology Pathology and Routine Cytology Order Schedule Name Type Priority Associated Diag noses Once for 1 Occurrences starting 03/01/20 20 until 03/01/2020 Cytogenetics Oncology, Pathology and Routine Blood and Bone Marrow Cytology Once for 1 Occurrences starting 03/01/20 until 03/01/2020 Hematopathology Pathology and Routine Cytology Health Maintenance Due Date Last Done Comments Hepatitis C Screening (B. 1950 7313-1116) MMR Vaccines (1 of 1 - 09/26/1951 Standard series) Varicella Vaccines (1 of 09/26/1951 2 - 2-dose childhood series) DTaP,Tdap,and Td Vaccines 09/26/1958 (1 - Tdap) Colon Cancer Screening 10 09/26/2001 yrs Zoster Vaccines (1 of 2) 09/26/2001 Pneumococcal Vaccine: 65+ 09/26/2016 Years (1 of 1 - PPSV23) Influenza Vaccine 12/10/2019 HIB Vaccines Aged Out No longer eligible based on patient's age to complete this topic Hepatitis A Vaccines Aged Out No longer eligibl e based on patient's age to complete this topic Hepatitis B Vaccines Aged Out No longer eligibl e based on patient's age to complete this topic IPV Vaccines Aged Out No longer eligible based on patient's age to complete this topic Pneumococcal Vaccine: Aged Out No longer eligib le based on patient's age to Pediatrics (0 to 5 Years) complete this topic and At-Risk Patients (6 to 64 Years) documented as of this encounter Results Not on filedocumented in this encounter
--- OUTSIDE RECORDS SUMMARY | 2020-04-11 10:32 | CCD | Continuity of Care Document ---
Author Author Marquise BERTRAND M.D Organization Unknown Address [address] [id number] Phone [phone] Care Team Providers Care Denier Control Operator Name Role Phone Toan Aponte MD AUTM [phone] Problems Active Problems Provider Date Essential hypertension Bucky Bertrand M.D. Onset: 03/31 Social History Type Date Description Comments Sex Unknown ETOH Use Drinks 2 Alcoholic Beverages Per Day Tobacco Use Start: Unknown End: Unknown Patient is a former smoker QUIT 12 YEARS AGO Allergies, Adverse Reactions, Alerts Active Allergies Reaction Severity Comments Date Penicillin V 03/31/2020 Codeine 03/31/2020 Humira 03/31/2020 Latex 03/31/2020 Amlodipine 03/31/2020 Medications Active Medications SIG Qnty Indications Ordering Provide r Date Suprep Bowel Prep Kit 17.5-3.13-1.6GM/177ML Solution use as directed 354ml Bucky Bertrand M.D. 03/31/[address] 1 cap by mouth every morning Unknown Rosuvastatin Calcium 40mg Tablets Unknown Fish Oil 1000mg Capsules 1 by mouth every day Unknown Glipizide ER 2.5mg Tablets ER 24HR Unknown Potassimin 75mg Tablets by mouth every day Unknown Metoprolol Tartrate 100mg Tablets Unknown Lactobacillus Probiotic Tablets Unknown Advair Diskus 250-50mcg/Dose Aerosol Unknown Spiriva Handihaler 18mcg Capsules Unknown Albuterol Sulfate (2 .5mg/3ML) 0.083% Nebulizer Unknown Clobetasol Propionate 0.05% Cream Unknown Immunizations Description No Information Available Vital Signs Date Vital Result Comment 03/31/2020 11:15am Height 67 inches 5'7" Weight 189.00 lb BP Systolic 125 mmHg BP Diastolic 64 mmHg Heart Rate 75 /min BMI (Body Mass Index) 29.6 kg/m2 Weight 85.730 kg Body Temperature 97.3 F Results Description No Information Available Procedures Description No Information Available Medical Devices Description No Information Available Encounters Type Date Location Provider Dx Diagnosis Office Visit 03/31/2020 10:30a Main Office Bucky Bertrand M.D. Z 86.010 Personal history of colonic polyps Assessments Date Code Description Provider 03/31/2020 Z86.010 History of adenomatous polyp of colon Bucky Bertrand M.D. Plan of Treatment Future Appointment(s):* 04/11/2020 11:00 am - Bucky Bertrand M.D. at Main Office 03/31/2020 - Bucky Bertrand M.D.* Z86.010 History of adenomatous polyp of colon* Comments:* 69 yo wm who presents for a colonoscopy due to a retained cecal polyp. Last scope was in 2019. No c/o abdominal pain, weight loss, change in bowel habits, or rectal bleeding. No family h/o colon cancer. No h/o chest pain, or sob. Plan:1.Schedule patient for Colonoscopy. 2. Informed consent given.3. Advised to stop asa, plavix,and anticoagulation 3 to 7 days prior to the procedures. Functional Status Description No Information Available Mental Status Description No Information Available Referrals Refer to Reason for Referral Status Appt Date Bucky Bertrand M.D. Created [address] [place] [address] [phone]
--- OUTSIDE RECORDS SUMMARY | 2020-04-11 10:32 | CCD ---
Author Author [facility] Organization [facility] Address Unknown Phone Unavailable Care Team Providers Care Indigo Mixer Name Role Phone Grace Florian Unavailable PROBLEMS Type Condition ICD9-CM Code [id number] Code Onset Dates Condition S tatus SNOMED Code Notes Problem Polyp of colon, unspecified part of colon, unspecified typ e K63.5 Active 48934217 Problem Alcohol abuse F10.10 Active 06216552 Problem Mixed hyperlipidemia E78.2 Active 456848343 Problem Gastric polyps K31.7 Active 92136997 Problem Type 2 diabetes mellitus wit hout complication, without long-term current use of insulin E11.9 Active 954451752 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 139830937 Problem Pancytopenia D61.818 Active 045172298 ALLERGIES Allergen (clinical drug ingredient) Drug/Non Drug Allergy do cumented on EMR Reaction Allergy Type Onset Date Status Codeine Phosphate([facility] Code:[address]-92) Rash Drug Allergy 04/04/2020 Active Penicillin (For Allergies Use Only) Hives Drug Allerg y 04/04/2020 Active ENCOUNTERS from 1950 to 2020-04-09 Encounter Location Date Provider Diagnosis [address] [address] Mar, Grace Florian IMMUNIZATIONS No Information SOCIAL HISTORY Tobacco Use: Social History Observation Description Date Details (start date - stop date) Former Smoker Sex Assigned At : Social History Observation Description Sex Assigned At Unknown Education: Question Answer Notes Level of Education: Finished High School Language: Question Answer Notes Languages spoken: Macedonian Buddhist: Question Answer Notes Buddhist 08 Zoroastrianism Sexual Hx: Question Answer Notes Had sex in the last 12 months (vaginal, oral, or anal)? Yes with Women only Alcohol Screening: Question Answer Notes Did you have a drink containing alcohol in the past year? Ye s Points 5 Interpretation Positive How many drinks did you have on a typica l day when you were drinking in the past year? 3 or 4 (1 point) How often did you have a drink containing alcohol in t he past year? Four or more times a week (4 points) Tobacco Use: Question Answer Notes Are you a: former smoker How long has it been since you last smoked? > 10 years REASON FOR REFERRAL No Information VITAL SIGNS No information MEDICATIONS Medication SIG (Take, Route, Frequency, Duration) Notes Start Da te End Date Status Lorazepam 0.5 MG (Schedule IV Drug) TAKE 1 TA BLET BY MOUTH DIRECTED 1 HOUR PRIOR TO BONE MARROW NEEDED FOR ANXIETY MAXIMUM DAILY DOSE 2 TABLETS Oral for 1 Active GlipiZIDE 5 MG 1 tablet 30 minutes before breakfast Orally Once a day Active Probiotic - as directed Orally Activ e Lopressor 100 MG 1 tablet with food Orally Twice a day for 30 day(s) Active Omeprazole 40 MG 1 capsule 30 minutes before morning meal Orally Oniel y Active Linden 3 1000 MG 1 capsule Orally Once a day Active Wixela Inhub 250-50 MCG/DOSE 1 puff Inhalation Twice a day Active Spiriva HandiHaler 18 MCG 1 capsule by inhaling the co ntents of the capsule using the HandiHaler device Inhalation Once a day Active ProAir HFA 108 (90 Base) mcg/act 2 puffs as needed Inh alation qid prn for 90 day(s) Active Rosuvastatin Calcium 40 MG 1 capsule Orally Once a day Active PROCEDURES No Information RESULTS No Results REASON FOR VISIT No Information MEDICAL (GENERAL) HISTORY Type Description Date Surgical History No Surgical history information Goals Section No Information Health Concerns No Information MEDICAL EQUIPMENT No Information MENTAL STATUS No Information FUNCTIONAL STATUS No Information ASSESSMENTS No Information PLAN OF TREATMENT Medication Medication Name Sig Start Date Stop Date Rosuvastatin Calcium 40 MG 1 capsule Orally Once a day Omeprazole 40 MG 1 capsule 30 minutes before morning meal Orally Daily GlipiZIDE 5 MG 1 tablet 30 minutes before breakfast Orally Once a day Linden 3 1000 MG 1 capsule Orally Once a day Insurance Providers Payer Name Payer Address Payer Phone Insured Name Patient Relati onship to Insured Coverage Start Date Coverage End Date 'S [place] [address] [address] [facility] [id number] KHRIS REYES self
--- OUTSIDE RECORDS SUMMARY | 2020-04-11 10:33 | CCD ---
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 Name Role Phone Lucy Bertrand MD Unavailable Unavailable Lucy Bertrand MD Unavailable Unavailable Lucy Bertrand MD Unavailable Unavailable Lucy Bertrand MD Unavailable Unavailable Lucy Bertrand MD Unavailable Unavailable Lucy Bertrand MD Unavailable Unavailable Lucy Bertrand MD Unavailable Unavailable Lucy Bertrand MD Unavailable Unavailable Lucy Bertrand MD Unavailable Unavailable Lucy Bertrand MD Unavailable Unavailable Lucy Bertrand MD Unavailable Unavailable Lucy Bertrand MD Unavailable Unavailable Lucy Bertrand MD Unavailable Unavailable Lucy Bertrand MD Unavailable Unavailable Lucy Bertrand MD Unavailable Unavailable Lucy Bertrand MD Unavailable Unavailable Lucy Bertrand MD Unavailable Unavailable Lucy Bertrand MD Unavailable Unavailable Lucy Bertrand MD Unavailable Unavailable Lucy Bertrand MD Unavailable Unavailable Lucy Bertrand MD Unavailable Unavailable Lucy Bertrand MD Unavailable Unavailable Lucy Bertrand MD Unavailable Unavailable Lucy Bertrand MD Unavailable Unavailable Lucy Bertrand MD Unavailable Unavailable Lucy Bertrand MD Unavailable Unavailable Lucy Bertrand MD Unavailable Unavailable Lucy Bertrand MD Unavailable Unavailable Jerzy, S Bucky CORONADO Unavailable Unavailable Jerzy, S Bucky MD Unavailable Unavailable Jerzy, S Bucky MD Unavailable Unavailable Jerzy, S Bucky MD Unavailable Unavailable Jerzy, S Bucky MD Unavailable Unavailable Jerzy, S Bucky MD Unavailable Unavailable Jerzy, S Bucky MD Unavailable Unavailable Jerzy, S Bucky MD Unavailable Unavailable Jerzy, S Bucky MD Unavailable Unavailable Jerzy, S Bucky MD Unavailable Unavailable Jerzy, S Bucky MD Unavailable Unavailable Jerzy, S Bucky MD Unavailable Unavailable Jerzy, S Bucky MD Unavailable Unavailable Jerzy, S Bucky MD Unavailable Unavailable Jerzy, S Bucky MD Unavailable Unavailable Jerzy, S Bucky MD Unavailable Unavailable Jerzy, S Bucky MD Unavailable Unavailable Jerzy, S Bucky MD Unavailable Unavailable Jerzy, S Bucky MD Unavailable Unavailable Jerzy, S Bucky MD Unavailable Unavailable ADJAPONG, YOANA Unavailable Unavailable Linda, Ritu Estevan Unavailable Unavailable Linda, Ritu Estevan Unavailable Unavailable Linda, Ritu Estevan Unavailable Unavailable Linda, Ritu Estevan Unavailable Unavailable Dermott, Ritu Estevan Unavailable Unavailable Linda, Ritu Estevan Unavailable Unavailable Dermott, Ritu Estevan Unavailable Unavailable Dermott, Ritu Estevan Unavailable Unavailable SOUTH, A JAHANGIR Unavailable Unavailable SOUTH, A JAHANGIR Unavailable Unavailable SOUTH, A JAHANGIR Unavailable Unavailable SOUTH, A JAHANGIR Unavailable Unavailable SOUTH, A JAHANGIR Unavailable Unavailable SOUTH, A JAHANGIR Unavailable Unavailable SOUTH, A JAHANGIR Unavailable Unavailable SOUTH, A JAHANGIR Unavailable Unavailable SOUTH, A JAHANGIR Unavailable Unavailable SOUTH, A JAHANGIR Unavailable Unavailable SOUTH, A JAHANGIR Unavailable Unavailable SOUTH, A JAHANGIR Unavailable Unavailable SOUTH, A JAHANGIR Unavailable Unavailable SOUTH, A JAHANGIR Unavailable Unavailable SOUTH, A JAHANGIR Unavailable Unavailable SOUTH, A JAHANGIR Unavailable Unavailable SOUTH, A JAHANGIR Unavailable Unavailable SOUTH, A JAHANGIR Unavailable Unavailable SOUTH, A JAHANGIR Unavailable Unavailable SOUTH, A JAHANGIR Unavailable Unavailable SOUTH, A JAHANGIR Unavailable Unavailable SOUTH, A JAHANGIR Unavailable Unavailable SOUTH, A JAHANGIR Unavailable Unavailable SOUTH, A JAHANGIR Unavailable Unavailable SOUTH, A JAHANGIR Unavailable Unavailable SOUTH, A JAHANGIR Unavailable Unavailable SOUTH, A JAHANGIR Unavailable Unavailable SOUTH, A JAHANGIR Unavailable Unavailable SOUTH, A JAHANGIR Unavailable Unavailable SOUTH, A JAHANGIR Unavailable Unavailable PEETS, K SIDNEY MD Unavailable Unavailable PEETS, K SIDNEY MD Unavailable Unavailable PEETS, K SIDNEY MD Unavailable Unavailable PEETS, K SIDNEY MD Unavailable Unavailable PEETS, K SIDNEY MD Unavailable Unavailable PEETS, K SIDNEY MD Unavailable Unavailable PEETS, K SIDNEY MD Unavailable Unavailable PEETS, K SIDNEY MD Unavailable Unavailable PEETS, K SIDNEY MD Unavailable Unavailable PEETS, K SIDNEY MD Unavailable Unavailable PEETS, K SIDNEY MD Unavailable Unavailable PEETS, K SIDNEY MD Unavailable Unavailable PEETS, K SIDNEY MD Unavailable Unavailable PEETS, K SIDNEY MD Unavailable Unavailable PEETS, K SIDNEY MD Unavailable Unavailable PEETS, K SIDNEY MD Unavailable Unavailable PEETS, K SIDNEY MD Unavailable Unavailable PEETS, K SIDNEY MD Unavailable Unavailable PEETS, K SIDNEY MD Unavailable Unavailable PEETS, K SIDNEY MD Unavailable Unavailable PEETS, K SIDNEY MD Unavailable Unavailable PEETS, K SIDNEY MD Unavailable Unavailable PEETS, K SIDNEY MD Unavailable Unavailable PEETS, K SIDNEY MD Unavailable Unavailable PEETS, K SIDNEY MD Unavailable Unavailable PEETS, K SIDNEY MD Unavailable Unavailable PEETS, K SIDNEY MD Unavailable Unavailable PEETS, K SIDNEY MD Unavailable Unavailable PEETS, K SIDNEY MD Unavailable Unavailable Re-disclosure Warning The records that you are about to access may contain information from federally-assisted alcohol or drug abuse programs. If such information is present, then the following federally mandated warning applies: This information has been disclosed to you from records protected by federal confidentiality rules (42 CFR part 2). The federal rules prohibit you from making any further disclosure of this information unless further disclosure is expressly permitted by the written consent of the person to whom it pertains or as otherwise permitted by 42 CFR part 2. A general authorization for the release of medical or other information is NOT sufficient for this purpose. The Federal rules restrict any use of the information to criminally investigate or prosecute any alcohol or drug abuse patient.The records that you are about to access may contain highly sensitive health information, the redisclosure of which is protected by Article 27-F of the [facility] Public Health law. If you continue you may have access to information: Regarding HIV / AIDS; Provided by facilities licensed or operated by the [facility] Office of Mental Health; or Provided by the [facility] Office for People With Developmental Disabilities. If such information is present, then the following [facility] mandated warning applies: This information has been disclosed to you from confidential records which are protected by state law. State law prohibits you from making any further disclosure of this information without the specific written consent of the person to whom it pertains, or as otherwise permitted by law. Any unauthorized further disclosure in violation of state law may result in a fine or custodial sentence or both. A general authorization for the release of medical or other information is NOT sufficient authorization for further disc losure. Allergies and Adverse Reactions Type Description Substance Reaction Status Data Source(s ) Drug allergy Penicillin (For Allergies Use Only) Drug allergy Hives Active eCW1 ([facility]) Drug allergy Codeine Phosphate Drug allergy Rash Active eCW 1 ([facility]) Encounters Encounter Providers Location Date Indications Data Source(s ) Unknown [address] [facility] [facility] [address] 04/08/2020 12:00:00 AM EST eCW1 ([facility]) Outpatient [address] [facility] [facility] [address] 04/04/2020 12:00:00 AM EST eCW1 ([facility]) Outpatient Attender: Bucky Bertrand MD Main Office 03/31/2020 09:30:00 AM EST MEDENT ([facility]) Outpatient Admitter: YOANA TAYLORReferrer: YOANA TAYLOR 03/01/2020 12:00:00 AM EST - 03/01/2020 11:59:00 PM EST d61.81 [facility] d61.81 Preadmit Attender: HEMA DIA ED-LABPNP 11/30/2019 12 :00:00 AM EDT N183 D509 [id number] [facility] N183 D509 E1122 Outpatient Attender: Estevan Castorena/Evelyn/Yordan/Reindl 11/26/2019 10:30:00 AM EDT MEDENT ([facility], ) Outpatient Referrer: SIDNEY DELACRUZ MD 06/16/2019 05:35:00 AM EDT [facility] Medications Medication Brand Name Start Date Product Form Dose Route Admi nistrative Instructions Pharmacy Instructions Status Indications Reaction Description Data Source(s) Suprep Bowel Prep Kit Suprep Bowel Prep Kit 03/31/2020 12:00:00 AM EST active MEDENT ([facility]) 0.5 mg 02/18/2020 12:00:00 AM EST tablet 2 TAKE 1 TABLET BY MOUTH DIRECTED 1 HOUR PRIOR TO BONE MARROW NEEDED FOR ANXIETY MAXIMUM DAILY DOSE = 2 TABLETS TAKE 1 TABLET BY MOUTH DIRECTED 1 ALESSIA R PRIOR TO BONE MARROW NEEDED FOR ANXIETY MAXIMUM DAILY DOSE = 2 TABLETS SOLD: 02/20/2020 [facility] Omeprazole 40 MG Delayed Release Oral Capsule Omeprazole 12/23/2019 12:00:00 AM EDT ORAL active MEDENT ([facility], ) Lactobacillus acidophilus 070591972 UNT Oral Capsule L actobacillus Extra Strength 12/23/2019 12:00:00 AM EDT active MEDENT ([facility]) Lactobacillus acidophilus [id number] UNT Oral Tablet Lactoba cillus 12/23/2019 12:00:00 AM EDT active M EDENT ([facility]) Omeprazole 40 MG Delayed Release Oral Capsule Omeprazole 12/23/2019 12:00:00 AM EDT ORAL active MEDENT ([facility]) Insurance Providers Payer name Policy type / Coverage type Policy ID Covered green party ID Covered green party's relationship to cavanaugh Policy Cavanaugh Plan Information 'S ADMINISTRATION [id number] SP [id number] [place] CC[place] [id number] SP [id number] MEDICARE A [id number] Self [id number] OTHER B [id number] Self [id number] [facility] [id number] S [id number] [place] CNN OPTUM [id number] SP [id number] [place] [id number] S [id number] [place] DEPT [place] LABOR [place] [id number] [place] DEPART OF LABOR P [id number] S [id number] [place] DEPT OF LABOR WC UNAVAILABLE SP UNAVAILABLE OTHER WORKERS COMPENSATI P [id number] S [id number] OTHER WORKERS COMPENSATION [id number] SP [id number] Problems, Conditions, and Diagnoses Code Display Name Description Problem Type Effective Dates Data Source(s) D61.818 [id number] Pancytopenia Problem 04/04/2020 12:00:00 AM EST eCW1 ([facility]) Z86.19 [id number] History of Joaquim-Linares virus infection P roblem 04/04/2020 12:00:00 AM EST eCW1 ([facility]) E11.9 [id number] Type 2 diabetes africa itus without complication, without long-term current use of insulin Problem 04/04/2020 12:00:00 AM EST eCW1 ([facility]) K31.7 [id number] Gastric polyps Problem 04/04/2020 12:00:00 A M EST eCW1 ([facility]) E78.2 [id number] Mixed hyperlipidemia Problem 04/04/2020 12:0 0:00 AM EST eCW1 ([facility]) F10.10 80955331 Alcohol abuse Problem 04/04/2020 12:00:00 AM EST eCW1 ([facility]) K63.5 55502436 Polyp of colon, unspecified part of colon, unspecified type Problem 04/04/2020 12:00:00 AM EST eCW1 ([facility]) 42330065 Essential hypertension Essential hypertension Problem 03/31/2020 12:00:00 AM EST MEDENT ([facility]) [id number] Essential hypertension Essential hypertension Problem 11/26/2019 12:00:00 AM EDT MEDENT ([facility], ) d61.81 d61.81 Diagnosis 03/01/2020 01:54:00 PM [facility] Results ID Date Data Source [id number] 04/06/2020 12:00:00 PM EST [facility] Name Value Range Interpretation Code Description Data Lata rce(s) Supporting Document(s) SARS coronavirus 2 RNA Not Detected [facility] [place] This lab was ordered by [facility] and reported by [facility]. ID Date Data Source QUANTIFERON TB GOLD TEST 04/06/2020 12:00:00 AM EST eCW1 ([facility]) Name Value Range Interpretation Code Description Data Lata rce(s) Supporting Document(s) eCW1 ([facility]) ID Date Data Source Comprehensive Metabolic Profile (CMP) 04/06/2020 12:00:00 AM EST eCW1 ([facility]) Name Value Range Interpretation Code Description Data Lata rce(s) Supporting Document(s) 141 70-100 eCW1 ([facility]) 22 7-18 eCW1 ([facility]) 1.64 0.70-1.30 eCW1 ([facility]) 44.7 >49 eCW1 ([facility]) 139 136-145 eCW1 ([facility]) 3.2 3.5-5.1 eCW1 ([facility]) 105 98-107 eCW1 ([facility]) 25 12-78 eCW1 ([facility]) 26 21-32 eCW1 ([facility]) 28 7-37 eCW1 ([facility]) 8.6 8.8-10.2 eCW1 ([facility]) 1.0 0.2-1.0 eCW1 ([facility]) 96 45-117 eCW1 ([facility]) 6.6 6.4-8.2 eCW1 ([facility]) 0.8 eCW1 ([facility]) 3.0 3.2-5.2 eCW1 ([facility]) ID Date Data Source PT & APTT 04/06/2020 12:00:00 AM EST eCW1 ([facility]) Name Value Range Interpretation Code Description Data Lata rce(s) Supporting Document(s) 15.0 12.5-14.3 eCW1 ([facility]) 1.15 eCW1 ([facility]) 49.8 24.2-38.5 eCW1 ([facility]) ID Date Data Source [id number] 04/06/2020 12:00:00 AM EST eCW1 ([facility]) Name Value Range Interpretation Code Description Data Lata rce(s) Supporting Document(s) eCW1 ([facility]) ID Date Data Source ERYTHROCYTE SEDIMENTATION RATE 04/06/2020 12:00:00 AM EST eC W1 ([facility]) Name Value Range Interpretation Code Description Data Lata rce(s) Supporting Document(s) 82 0-20 eCW1 ([facility]) ID Date Data Source C REACTIVE PROTEIN QUANTITATIV (At [facility]) 04/06/2020 12:00 :00 AM EST eCW1 ([facility]) Name Value Range Interpretation Code Description Data Lata rce(s) Supporting Document(s) 0.77 0.00-0.30 eCW1 ([facility]) ID Date Data Source ALPHA FETOPROTEIN TUMOR QUANT 04/06/2020 12:00:00 AM EST eCW 1 ([facility]) Name Value Range Interpretation Code Description Data Lata rce(s) Supporting Document(s) 5.4 <8.1 eCW1 ([facility]) ID Date Data Source [id number] 03/02/2020 04:43:00 PM EST [facility] Hematopathology Report See Addendum [facility] wName: KHRIS REYESMRN: [id number] Number: [id number] Date: 03/01/2020 08:30Received Date: 03/01/2020 14:11Physician(s): YOANA TAYLOR MD ADJAPONG, OPOKU, MDSpecimen(s) ReceivedA: Bone Marrow, Flow Cytometry, received 1 green top bm, 2 aspiratesmears, 1 edta smear, 2 xtra edta to molecularClinical HistoryPancytopenia, requiring frequent transfusions.TEST REQUESTED/PERFORMED: Flow cytometry analysis DiagnosisFlow cytometry of bone marrow: Slightly increased myeloblasts with noevidence of non-Hodgkin lymphoma. Cytogenetic studies are pending. Jennie Derik, M.D.;Resident PathologistElectronically Signed By Johnathan Cornelius M.D. Attending Pathologist 03/02/2020 16:43:20The attending pathologist named above attests that he/she has personallyreviewed the relevant preparation(s) for the specimen(s) and rendered thefinal diagnosis. Addendum 03/08/2020 Cytogenetic report [id number] shows the following results:A normal male karyotype was observed in twenty metaphases analyzed.ADDENDUM: Normal karyotype. Correlation with full bone marrow biopsy isrecommended. Addendum Electronically Signed By: WILEY GARCIA M.D. 03/08/2020 13:10 ProceduresFlow Cytometry Date Ordered:03/01/2020 Status: Signed Out03/02/2020 InterpretationPERIPHERAL BLOOD: CBC performed at [facility] (03/01/20)WBC *1.9 K/uLRBC *2.31 M/uLHgb *6.7 g/dLHct *21.5 %MCV 93.1 fLMCH 29.0 pgMCHC 31.2 g/dLRDW *17.0 %Platelets *89 K/ulDifferential Count (100 cells): 9 % N. Band Forms23 % Neutrophils 8 % Nezpryajmkd01 % Anzhksytfap02 % Monocytes-------100 % A peripheral blood film shows dimorphic RBC population-microcytic andnormocytic with mild poikilocytosis (dacrocytes). Neutropenia with rarecirculating blasts and myelocytes. BONE MARROW ASPIRATE:Differential Count (100 cells):39 % Erythroid Precursors 3 % Tkumuzwsdrrsh71 % N. Vqtyaiauux55 % N. Metamyelocytes and Band Forms 6 % Neutrophils 3 % Eosinophils 6 % Lymphocytes--------100 % Morphology: The aspirate smear is hemodilute. Lymphoid Panel: Eric Camarillo [id number] following markers were assayed: CD45 (gate), CD2, CD3, CD4, CD5, CD7,CD8, CD10, CD11c, CD19, CD20, CD22, CD23, CD25, CD33, CD34, CD38, CD56,CD57, CD64, CD103, CD117, CD123, HLA- DR, [place], Lambda, and FMC7.# events: [id number]: 93%Flow Cytometry Differential (CD45/SSC)Lymphocyte [place]: 15%CD45 dim [place]: 6%Monocyte [place]: 1%Granulocyte [place]: 41%Nucleated/Erythroid [place]: 22%The lymphocyte gate showsB- cells (CD19): 9%T-cells (CD3): 65%NK-cells (CD3-/CD56+): 24%[place]/Lambda Ratio: 1.5CD4/CD8 Ratio: 3.6Results: (expressed as % of lymphocyte gate)B-cell markers: [place] = 3, Lambda = 2, CD19 = 7, CD20 = 10, CD22 = 8,CD19/10 = 2, CD19/CD5 = 2, CD19/CD23 = 6, FMC7 = 4, CD38/CD20 = 7Light chain as % of B-Cells: CD19/[place] = 28, CD19/Lambda = 25CD19/CD5/[place] = 1, CD19/CD5/Lambda = 1CD19/CD10/[place] = 3, CD19/CD10/Lambda = 2CD38 on CD19/5 positive cells: 53%T-cell Markers: CD2 = 78, CD3 = 65, CD3/CD4 = 51, CD3/CD8 = 15, CD5 = 64,CD7 = 85, CD3/57 = 5NK-cell Markers: CD56 = 27, CD57 = 11Other Markers: CD25 = 44, CD103 = 2, CD11c = 29, CD103/CD11c = 1, CD103/25= 1, CD103/22 = 0 CD10 = 3, CD38 = 61Results: (expressed as % of CD45 dim gate)B-cell markers: [place] = 1, Lambda = 15, CD19 = 23, CD20 = 8, CD22 = 15,CD19/10 = 14, CD19/CD5 = 1, CD19/CD23 = 2, FMC7 = 4, CD38/CD20 = 8Light chain as % of B-Cells: CD19/[place] = 37, CD19/Lambda = 46CD19/CD10/[place] = 2, CD19/CD10/Lambda = 4T-cell Markers: CD2 = 12, CD3 = 2, CD3/CD4 = 6, CD3/CD8 = 1, CD5 = 3, CD7= 11, CD3/57 = 1NK-cell Markers: CD56 = 8, CD57 = 2Basophil Markers: CD123 (HLA-DR-) = 2Other Markers: CD10 = 21, CD38 = 95, CD33 = 69, CD34 = 51, CD64 = 33,CD117 = 37, CD123 = 28, HLA-DR = 90, CD25 = 4, CD103 = 1, CD11c = 53Results-CommentsLymphocytes consist predominantly of T cells with normal expression of panT-cell markers and high-normal CD4/CD8 ratio, normal proportions of NK andcytotoxic T cells, and polyclonal B cells. CD34+ blasts comprise 3.4% of cells studied. They are positive for CD117,HLA-DR, CD33, and dim CD123. They are negative for CD64.Procedure Electronically Signed By:Johnathan Cornelius M.D.03/02/2020 This report may include one or more immunohistochemical stain/fluorochromeconjugated monoclonal antibody results that use analyte specific reagents.All positive and negative controls have been reviewed by the attendingpathologist and are satisfactory. The tests were developed and theirperformance characteristics determined by [facility] Pathology department.They have not been cleared or approved by the US Food and DrugAdministration. The FDA has determined that such clearance or approval isnot necessary. Name Value Range Interpretation Code Description Data Lata rce(s) Supporting Document(s) ID Date Data Source [id number] 03/17/2020 02:49:00 PM [facility] Hematopathology ReportName: EFREN REYESMRN: [id number] Number: [id number] Date: 03/01/2020 00:00Received Date: 03/15/2020 15:21Physician(s): YOANA TAYLOR MD ADJAPONG, OPOKUST. [facility]opy To[facility]imen[facility]s) ReceivedA: Slides received for consultation, KB; Received 4 slides and blocks A2and B2 of BM labeled [id number] collected on 03/01/2020 from [facility] inconsultation with Dr. TaylorClinical HistoryIncreased plasma cells in marrow. Rule out plasma cell neoplasm.TEST REQUESTED/PERFORMED: Hematopathology Consultation DiagnosisNo evidence of plasma cell neoplasm. Slightly increased polyclonal plasmacells. Jennie More M.D.;Resident PathologistElectronically Signed By Terri Maxwell M.D. Attending Pathologist 03/17/2020 14:49:59The attending pathologist named above attests that he/she has personallyreviewed the relevant preparation(s) for the specimen(s) and rendered thefinal diagnosis. ProceduresHematopathology Consultation Date Ordered:03/15/2020 Status: Si gned Out03/16/2020 InterpretationPERIPHERAL BLOOD: CBC performed at [facility] (03/01/20)WBC *1.9 K/uLRBC *2.31 M/uLHgb *6.7 g/dLHct *21.5 %MCV 93.1 fLMCH 29.0 pgMCHC *31.2 g/dLRDW *17.0 %Platelets *89 K/uL MARROW BIOPSY: Biopsy sections show a small fragment of subcortical marrow withtrilineage hematopoiesis. Bony trabeculae are unremarkable. CLOT ASPIRATE:Sections of bone marrow aspirate show normocellular particles withtrilineage hematopoiesis. Plasma cells are seen sca ttered and in smallclusters or in perivascular localization. These cells comprise around 5%of the cellularity. Hemosiderin-laden macrophages are seen. Blasts are notincreased.SPECIAL STAINS: CD138 highlight plasma cells scattered or forming smallclusters. [place] and lambda in situ hybridization show polyclonal plasmacells, but their number is lower than on the CD138 stain. To bettercharacterize plasma cells, kappa and lambda immunostains are alsoperformed and show polyclonal plasma cells. Stains received for interpretation from the outside institution: [id number] performed at [facility]: [place] and lambda ISHand kappa and lambda immunohistochemistry.Procedure Electronically Signed By:Terri Maxwell M.D.03/17/2020 This report may include one or more immunohistochemical stain/fluorochromeconjugated monoclonal antibody results that use analyte specific reagents.All positive and negative controls have been reviewed by the attendingpathologist and are satisfactory. The tests were developed and theirperformance characteristics determined by [facility] Pathology department.They have not been cleared or approved by the US Food and DrugAdministration. The FDA has determined that such clearance or approval isnot necessary. Name Value Range Interpretation Code Description Data Lata rce(s) Supporting Document(s) ID Date Data Source [id number] 03/07/2020 01:43:00 PM [facility] Cytogenetics ReportName: KHRIS REYESMRN: [id number] Number: [id number] Date: 03/01/2020 00:00Received Date: 03/01/2020 14:04Physician(s): YOANA TAYLOR MD ADJAPONG, OPOKU,MDSpecimen(s) ReceivedA: Bone Marrow - Karyotype analysis and FISHClinical [id number]-vga patient with pancytopenia, requiring frequent transfusions.TEST REQUESTED/PERFORMED: Karyotype Analysis and Fluorescence in situhybridization - FISH DiagnosisA normal male karyotype was observed in twenty metaphases analyzed. As noabnormalities were detected by karyotype analysis, the FISH study wascanceled by Dr. Martinez Cornelius. Please correlate with the concurrentHematopathology report [id number]. Electronically Signed By Danielle Dalal MD, PhD AttendingPathologist 03/07/2020 13:43:22Gross DescriptionChromosome Mijspdoo85,XY[20] DescriptionA normal male karyotype was observed in twenty metaphases analyzed. Withinthe limits of the resolution of this karyotype analysis, no consistentstructural and/or numerical chromosomal aberrations were detected. Test DataSpecimen Processed: Bone Marrow Chromosome Analysis:Wyano phases Counted Metaphases Analyzed Metaphases Karyotyped BandingTechnique Band Resolution Culture 20 20 2 GTL 400 24 HR unstimulatedDisclaimer: Conventional chromosome analysis may not detect submicroscopicchromosome aberrations or low level mosaicism. Name Value Range Interpretation Code Description Data Lata rce(s) Supporting Document(s) ID Date Data Source [id number] 12/17/2019 11:36:00 AM EDT [facility] ([facility], ) Name Value Range Interpretation Code Description Data Lata rce(s) Supporting Document(s) Surgical pathology study Laboratory test result [facility] ([facility], ) FINAL DIAGNOSIS A-Gastric polyp, polypectomy: Polypoid fragment of gastric mucosa with inflammation and hyperplastic changes. B-Cecal, biopsy: Colonic mucosa showing reparative changes of surface epithelium and mild nonspecific inflammation. Note: The findings may be related to bowel prep or a resolved non-specific colitis C--Colon, cecal polyp, polypectomy: Tubular adenoma, fragments. D-Colon polyps, polypectomy: Tubular adenoma, fragments. 12/18/2019 - 120 CLINICAL DIAGNOSIS Anemia 12/17/20191517 GROSS DIAGNOSIS A - Received in formalin labeled "gastric polyps" and consists of a fragment of tissue 0.1 x 0.1 x 0.1 cm. All in one. B - Received in formalin labeled "biopsy cecal inflammation" and consists of a fragment of tissue 0.1 x 0.1 x 0.1 cm. All in one. C - Received in formalin labeled "cecal polyp" and consists of a fragment of tissue 0.8 x 0.8 x 0.2 cm. All in one. D - Received in formalin labeled "colon polyps" and consists of fragments of tissue 2 x 2 x 0.5 cm. in aggregate. All in one. -OA 12/17/2019 - 1517 Signed YOANA TAYLOR MD 12/18/2019 1206 ID Date Data Source [id number] 12/12/2019 09:30:00 AM EDT [facility] Name Value Range Interpretation Code Description Data Lata rce(s) Supporting Document(s) SARS coronavirus 2 RNA [facility] This lab was ordered by [facility] and reported by [facility]. Procedure Social History Code Duration Value Status Description Data Source(s ) Smoking 04/04/2020 12:00:00 AM EST Former Smoker completed Former Smoker W1 ([facility]) Smoking 04/04/2020 12:00:00 AM EST Former Smoker completed Former Smoker [facility] ([facility]) Vital Signs ID Date Data Source UNK Name Value Range Interpretation Code Description Data Source(s) Diastolic blood pressure 78 mm[Hg] 78 mm[Hg] eCW1 ([facility]) Systolic blood pressure 104 mm[Hg] 104 mm[Hg] e CW1 ([facility]) Body temperature 98.4 [degF] 98.4 [degF] eCW1 ( [facility]) Respiratory rate 18 /min 18 /min eCW1 ([facility]) Heart rate 77 /min 77 /min eCW1 ([facility]) Body mass index (BMI) [Ratio] 30.22 kg/m2 30.22 kg/m2 eCW1 ([facility]) Body height 67 [in_i] 67 [in_i] eCW1 ([facility]) Body weight 193 [lb_av] 193 [lb_av] eCW1 ([facility]) Body temperature 97.3 [degF] 97.3 [degF] MEDENT ([facility]) Body weight 85.730 kg 85.730 kg [facility] ([facility]) Body mass index (BMI) [Ratio] 29.6 kg/m2 29.6 k g/m2 [facility] ([facility]) Heart rate 75 /min 75 /min [facility] ([facility]) Diastolic blood pressure 64 mm[Hg] 64 mm[Hg] [facility] ([facility]) Systolic blood pressure 125 mm[Hg] 125 mm[Hg] M EDENT ([facility]) Body weight 189.00 [lb_av] 189.00 [lb_av] MEDEN T ([facility]) Body height 67 [in_i] 67 [in_i] [facility] ([facility]) 5'7" Body weight 89.019 kg 89.019 kg [facility] ([facility], ) Ewen body weight 148 [lb_av] 148 [lb_av] MEDEN T ([facility], ) Body mass index (BMI) [Ratio] 30.7 kg/m2 30.7 k g/m2 [facility] ([facility], ) Body weight 196.25 [lb_av] 196.25 [lb_av] MEDEN T ([facility], ) Body height 67 [in_i] 67 [in_i] MED[facility] ([facility], ) 5'7" Diastolic blood pressure 72 mm[Hg] 72 mm[Hg] [facility] ([facility], ) Systolic blood pressure 156 mm[Hg] 156 mm[Hg] [facility] Body weight 89.076 kg 89.076 kg [facility] ([facility], ) Ewen body weight 148 [lb_av] 148 [lb_av] [facility] Body mass index (BMI) [Ratio] 30.8 kg/m2 30.8 k g/m2 [facility] ([facility], ) Body weight 196.38 [lb_av] 196.38 [lb_av] [facility] Body height 67 [in_i] 67 [in_i] [facility] ([facility], ) 5'7" Diastolic blood pressure 78 mm[Hg] 78 mm[Hg] [facility] ([facility]) Systolic blood pressure 140 mm[Hg] 140 mm[Hg] Benny WYLIE ([facility], )
[2020-04-11] MEDS ORDERED: propofoL 200 MG/20 ML VIAL As Ordered ONE (10:49)
[2020-04-11] MEDS ORDERED: LIDOCAINE 2% 100MG/5ML SDV (FOR ANES.) As Ordered ONE (10:49)
--- NOTE | 2020-04-11 11:23 | ROOR ---
Patient Name: Marquise Reyes Procedure Date: 04/11/2020 10:43 AM Date of : 1950 Age: 69 Room: [facility] Gender: Male Note Status: Finalized Procedure: Total Colonoscopy to Cecum + Cold Snare Polypectomy + Hemoclip Indications: High risk colon cancer surveillance: Personal history of colonic polyps Providers: Bucky Bertrand MD Referring MD: Royal Harrison MD, [facility], Admin. Requesting Provider: Medicines: Monitored Anesthesia Care Complications: No immediate complications. Procedure: Pre-Anesthesia Assessment: - The heart rate, respiratory rate, oxygen saturations, blood pressure, adequacy of pulmonary ventilation, and response to care were monitored throughout the procedure. The Colonoscope was introduced through the anus and advanced to the cecum, identified by appendiceal orifice and ileocecal valve. The colonoscopy was performed without difficulty. The patient tolerated the procedure well. The quality of the bowel preparation was good. Findings: The perianal and digital rectal examinations were normal. Non-bleeding internal hemorrhoids were found during retroflexion. The hemorrhoids were small and Grade I (internal hemorrhoids that do not prolapse). Multiple small and large-mouthed diverticula were found in the recto-sigmoid colon, sigmoid colon and descending colon. Multiple sessile polyps were found in the cecum. The polyps were medium in size. These polyps were removed with a cold snare. Resection and retrieval were complete. To prevent bleeding after the polypectomy, one hemostatic clip was successfully placed (MR conditional). There was no bleeding at the end of the procedure. The exam was otherwise without abnormality on direct and retroflexion views. Impression: - Non-bleeding internal hemorrhoids. - Diverticulosis in the recto-sigmoid colon, in the sigmoid colon and in the descending colon. - Multiple medium polyps in the cecum, removed with a cold snare. Resected and retrieved. Clip (MR conditional) was placed. - The examination was otherwise normal on direct and retroflexion views. - The exam was otherwise normal to the cecum. Recommendation: - Patient has a contact number available for emergencies. The signs and symptoms of potential delayed complications were discussed with the patient. Return to normal activities tomorrow. Written discharge instructions were provided to the patient. - High fiber diet. - Discharge patient to home. - Continue present medications. - Await pathology results. - Telephone GI clinic for pathology results in 1 week. - Repeat colonoscopy for surveillance based on pathology results. - Return to referring physician. - The findings and recommendations were discussed with the patient. Procedure Code(s): --- Professional --- 98781, Colonoscopy, flexible; with removal of tumor(s), polyp(s), or other lesion(s) by snare technique Diagnosis Code(s): --- Professional --- Z86.010, Personal history of colonic polyps K64.0, First degree hemorrhoids K63.5, Polyp of colon K57.30, Diverticulosis of large intestine without perforation or abscess without bleeding CPT copyright 2019 [employer]. All rights reserved. 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 Bucky Bertrand MD Bucky Bertrand MD 04/11/2020 11:23:06 AM Electronically signed by Bucky Bertrand MD Number of Addenda: 0 Note Initiated On: 04/11/2020 10:43 AM Estimated Blood Loss: Estimated blood loss: none.
[2020-04-11 11:57] VITALS: BP 134/62
== END 2020-04-11 11:56 | disposition home or self-care (01) ==
LOC: M OPP 09:54
PROVIDERS: ATTEND Internal Medicine Gastroenterology
DX: Z12.11 Encounter for screening for malignant neoplasm of colon (principal); Z86.010 Personal history of colon polyps; D12.0 Benign neoplasm of cecum; K64.0 First degree hemorrhoids; K57.30 Diverticulosis of large intestine without perforation or abscess without bleeding; I10 Essential (primary) hypertension; E78.5 Hyperlipidemia, unspecified; E11.9 Type 2 diabetes mellitus without complications; M10.9 Gout, unspecified; R12 Heartburn; M19.90 Unspecified osteoarthritis, unspecified site; L40.9 Psoriasis, unspecified; J44.9 Chronic obstructive pulmonary disease, unspecified; F17.290 Nicotine dependence, other tobacco product, uncomplicated; Z86.73 Personal history of transient ischemic attack (TIA), and cerebral infarction without residual deficits; Z88.0 Allergy status to penicillin; Z88.5 Allergy status to narcotic agent; Z88.8 Allergy status to other drugs, medicaments and biological substances; Z91.040 Latex allergy status; Z79.84 Long term (current) use of oral hypoglycemic drugs; Z79.899 Other long term (current) drug therapy

== ENCOUNTER → 2021-02-15 | Outpatient (REF) | payer OTHER ==
[~2021-02-15] MED LIST changes: +ALDA25TA2 PO; +ECOT81TA5 PO; +FOLI1TAB11 PO; +FURO40TA2 PO; -LISI-538 PO; +LISI20TA33 PO; +MULT1TAB8 PO; -NS 1,000 ML IV ONE; +VITA100T28 PO
== END ==
LOC: M LAB REF 12:52
PROVIDERS: ATTEND Internal Medicine Nephrology
DX: N18.32 Chronic kidney disease, stage 3b (principal)

== ENCOUNTER → 2021-03-17 | Outpatient (REF) | payer OTHER | LOC: M LAB REF 13:07 | PROVIDERS: ATTEND Nurse Practitioner Family | DX: N18.32 Chronic kidney disease, stage 3b (principal) ==

== ENCOUNTER → 2022-06-15 | Outpatient (REF) | payer OTHER ==
[~2022-06-15] MED LIST changes: -OMEP-221 PO; +OMEP40CA5 PO
[2022-06-15 17:37] LABS: PERCENT SATURATION 51.8 % (19.7-50.0)
[2022-06-15 18:00] LABS: FERRITIN 1762.2 NG/ML (10.5-307.3)
== END ==
LOC: M LAB REF 16:51
PROVIDERS: ATTEND Nurse Practitioner Family
DX: D50.9 Iron deficiency anemia, unspecified (principal)

== ENCOUNTER → 2023-12-20 | Outpatient (REF) | payer OTHER ==
[~2023-12-20] MED LIST changes: +ALBU2.5V10; +ALOG25TA; +B-12100010 PO; +CLOBETASOL; +FERR324T21; +FURO20TA2 PO; +GLIP1TAB11; +JARD1TAB3; -K-TA10TA PO; +METO1TAB7 PO; +NESI12.5 PO; +POTA-164 PO; -ROSU40TA4 PO; +ROSU40TA81 PO; +SEMA0.257 SQ; +SPIR12.9; +VENTAER INH
[2023-12-20 18:51] LABS: PERCENT SATURATION 22.3 % (19.7-50.0)
[2023-12-20 18:56] LABS: FERRITIN 638.3 NG/ML (10.5-307.3)
== END ==
LOC: M LAB REF 17:20
PROVIDERS: ATTEND Nurse Practitioner Family
DX: D50.9 Iron deficiency anemia, unspecified (principal)

== ENCOUNTER → 2024-05-05 | Outpatient (REF) | payer OTHER ==
[~2024-05-05] MED LIST changes: -ADV100INH INH; +ADVA1AER8 INH; +POTA10807 PO; -POTA10808 PO
[2024-05-05 18:32] LABS: FERRITIN 246.3 NG/ML (10.5-307.3); PERCENT SATURATION 11.9 % (19.7-50.0)
== END ==
LOC: M LAB REF 17:44
PROVIDERS: ATTEND Nurse Practitioner Family
DX: D50.9 Iron deficiency anemia, unspecified (principal)

== ENCOUNTER → 2024-12-16 | Outpatient (CLI) | payer OTHER ==
[~2024-12-16] MED LIST changes: +CALC500T61 PO; +CLOB5CR TOP; +GLIP2.5T46 PO; -GLIP2.5T6 PO
== END ==
LOC: M PLAIMG 08:29
PROVIDERS: ATTEND Physician Assistant
DX: R91.8 Other nonspecific abnormal finding of lung field (principal)

== ENCOUNTER → 2025-01-22 | Outpatient (REF) | payer OTHER ==
[~2025-01-22] MED LIST changes: +CEFD1CAP9 PO; +GLIM1TAB84; +METO1TAB33 PO; +SEMA1PEN2 SQ
[2025-01-22 18:08] LABS: VITAMIN B12 LEVEL > 2000 PG/ML (211-911)
== END ==
LOC: M LAB REF 17:17
PROVIDERS: ATTEND Nurse Practitioner Family
DX: D51.9 Vitamin B12 deficiency anemia, unspecified (principal)